=== PATIENT | male | born 1950 | race Hispanic/Latino ===

== ENCOUNTER 2017-12-16 08:16 | Day surgery (SDC) | payer OTHER ==
[2017-12-16 09:04] VITALS: BMI 26.6
[2017-12-16] MEDS ORDERED: Propofol 10 mg/ml Inj (20 ML) ONE (09:43)
[2017-12-16] MEDS ORDERED: Lidocaine Hydrochloride 10 ML INJ ONE (09:43)
--- NOTE | 2017-12-16 09:43 | CP.SDSHP ---
Same Day Surgery H & P - History Proposed Procedure: egd Pre-Op Diagnosis: abdominal pain - Allergies Allergies: Allergies No Known Allergies Allergy (Verified 12/16/17 09:03) - Physical Exam General Appearance: nl Vital Signs: Vital Signs 12/16/17 09:11 Temperature 97.6 F Pulse Rate 64 Respiratory 9 L Rate Blood Pressure 143/71 O2 Sat by Pulse 99 Oximetry Mental Status: Alert & Oriented x3 Neuro: WNL Heart: WNL Lungs: WNL GI: WNL - {Optional Preform as Required} Abdomen: WNL - Impression Impression: abdominal pain Pt. Evaluated Today:Candidate for Anesthesia & Procedure: Yes - Date & Time Date: 12/16/17 Time: 09:43 Short Stay Discharge - Short Stay Discharge Admitting Diagnosis/Reason for Visit: RIGHT UPPER QUADRANT PAIN Disposition: HOME/ ROUTINE
[2017-12-16] MEDS ORDERED: Etomidate 20 mg/10ml Inj IV ONE ×2 (09:45→09:58)
[2017-12-16] MEDS ORDERED: Lidocaine Hydrochloride 5 ML INJ ONE (09:55)
[2017-12-16 10:50] VITALS: TEMP 97; O2SAT 100
[2017-12-16 10:51] VITALS: RESP 13
[2017-12-16 11:12] VITALS: BP 151/80; PULSE 80
== END 2017-12-16 11:10 | disposition home or self-care (01) ==
LOC: C.ENDO 08:16
PROVIDERS: ATTEND Internal Medicine
DX: K29.70 Gastritis, unspecified, without bleeding (principal); R10.11 Right upper quadrant pain
CPT/HCPCS: 43239; 82948; 88305; J2405; J2704

== ENCOUNTER 2018-01-02 09:33 | Day surgery (SDC) | payer OTHER ==
[2018-01-02 10:31] VITALS: BMI 27.7
[2018-01-02] MEDS ORDERED: Lidocaine Hydrochloride 5 ML INJ ONE (11:36)
[2018-01-02] MEDS ORDERED: Propofol 10 mg/ml Inj (20 ML) ONE (11:36)
[2018-01-02 13:23] VITALS: BP 153/79; PULSE 81; RESP 21; TEMP 97.3; O2SAT 98
== END 2018-01-02 13:10 | disposition home or self-care (01) ==
LOC: C.ENDO 09:33
PROVIDERS: ATTEND Internal Medicine
DX: K63.5 Polyp of colon (principal); I10 Essential (primary) hypertension; F17.210 Nicotine dependence, cigarettes, uncomplicated
CPT/HCPCS: 45380; 82948; 88305; J2704